=== PATIENT | male | born 1975 | race Caucasian/White ===

== ENCOUNTER 2025-06-17 10:11 | Emergency (ER) | payer SELFPAY ==
[~2025-06-17] VITALS: Ht 172.7 cm; Wt 74.8 kg
[2025-06-17 10:11] VITALS: BP 138/99; TEMP 98.1; O2SAT 98
[2025-06-17] MEDS ORDERED: AMOX500C2 PO (10:22)
== END 2025-06-17 10:31 | disposition home or self-care (01) ==
LOC: ER 10:22
DX: J02.9 Acute pharyngitis, unspecified (principal)